=== PATIENT | male | born 1995 | race Caucasian/White ===

== ENCOUNTER 2016-10-11 11:06 | Inpatient (IN) | payer MEDICAID, OTHER ==
[~2016-10-11] VITALS: Ht 180.3 cm; Wt 69.6 kg
[2016-10-11] MEDS ORDERED: QUET300T2 PO (11:20)
[2016-10-11] MEDS ORDERED: HALOPERIDOL LACTATE 5 MG/ML VIAL IM ONE (11:30)
[2016-10-11] MEDS ORDERED: DiphenhydrAMINE HCL 50 MG/ML VIAL IM ONE (11:30)
[2016-10-11] MEDS ORDERED: LORazepam 2 MG/ML VIAL IM ONE (11:30)
[2016-10-11 11:44] LABS: BASOPHILS # (AUTO) 0.06 K/uL (0.00-0.20); BASOPHILS % (AUTO) 0.8 % (0.0-2.0); EOSINOPHILS # (AUTO) 0.04 K/uL (0.00-0.70); EOSINOPHILS % (AUTO) 0.47 % (1.0-6.0); HEMATOCRIT 44.4 % (41-53); HEMOGLOBIN 14.7 g/dL (13.5-17.5); LYMPHOCYTES # (AUTO) 2.5 K/uL (1.0-4.8); LYMPHOCYTES % (AUTO) 30.4 % (22.0-44.0); MEAN CORPUSCULAR HEMOGLOBIN 29.4 pg (26.0-34.0); MEAN CORPUSCULAR VOLUME 89 fL (80-100); MONOCYTES # (AUTO) 0.6 K/uL (0.1-1.0); MONOCYTES % (AUTO) 7.7 % (2.0-9.0); NEUTROPHILS % (AUTO) 60.6 % (40.0-70.0); PLATELET COUNT (AUTO) 242 K/uL (150-450); RED BLOOD CELL COUNT(AUTO) 4.99 MIL/uL (4.50-5.90); RED CELL DISTRIBUTION WIDTH 15.3 % (11.5-14.5); WHITE BLOOD COUNT (AUTO) 8.3 K/uL (4.5-11.0)
[2016-10-11 11:53] LABS: ANION GAP 13 mmol/L (8-16); CARBON DIOXIDE 25 mmol/L (22-29); CHLORIDE 100 mmol/L (98-107); GLOMERULAR FILTR. RATE CALC > 60 mL/min (>60); POTASSIUM 3.8 mmol/L (3.5-5.1); SODIUM SERUM 138 mmol/L (136-145); UREA NITROGEN, BLOOD 19 mg/dL (7-18)
[2016-10-11 11:59] LABS: ALANINE AMINOTRANSFERASE 64 U/L (12-78); ALBUMIN 4.3 g/dL (3.4-5.0); ASPARTATE AMINOTRANSFERASE 30 U/L (15-37); BILIRUBIN,TOTAL 0.6 mg/dL (0.1-1.0); TOTAL PROTEIN, SERUM 7.9 g/dL (6.4-8.2)
[2016-10-11] MEDS ORDERED: ZOLPIDEM TARTRATE 10 MG TABLET PO PRN (14:30)
[2016-10-11] MEDS ORDERED: LORazepam 2 MG TABLET PO PRN (14:30)
[2016-10-11] MEDS ORDERED: HALOPERIDOL 5 MG TABLET PO PRN (14:30)
[2016-10-11 17:36] VITALS: BP 137/78
[2016-10-11] MEDS ORDERED: PNEUMOCOCCAL VACCINE POLYVALENT 0.5 ML VIAL [PPSV23] IM ONE (18:00)
[2016-10-11] MEDS ORDERED: INFLUENZA VIRUS VACCINE QVS 2016-17 (3YR+)/PF 60 MCG/0.5 ML SYRINGE IM ONE (18:00)
[2016-10-12 07:10] VITALS: BP 117/70
[2016-10-12] MEDS: BACITRACIN 28.4 GM OINTMENT TP SCH ×2 (08:48→17:00)
[2016-10-12 09:51] VITALS: BP 107/80
[2016-10-12] MEDS ORDERED: ONDANSETRON HCL 4 MG TABLET PO PRN (14:30)
[2016-10-12] MEDS ORDERED: PETROLATUM,WHITE 71 GM JELLY TP PRN (14:30)
[2016-10-12] MEDS ORDERED: ACETAMINOPHEN 325 MG TABLET PO PRN (14:30)
[2016-10-12] MEDS ORDERED: MAGNESIUM HYDROXIDE SUSPENSION 30 ML UDCUP PO PRN (14:30)
[2016-10-12] MEDS ORDERED: LOPERAMIDE HCL 2 MG CAPSULE PO PRN (14:30)
[2016-10-12] MEDS ORDERED: BACITRACIN 28.4 GM OINTMENT TP PRN (14:30)
[2016-10-12] MEDS ORDERED: CloNIDine HCL 0.1 MG TABLET PO PRN (14:30)
[2016-10-12] MEDS ORDERED: IBUPROFEN 600 MG TABLET PO PRN (14:30)
[2016-10-12] MEDS ORDERED: BENZOCAINE/MENTHOL LOZENGE MM PRN (14:30)
[2016-10-12] MEDS ORDERED: ALBUTEROL SULFATE HFA 90 MCG/PUFF 8 GM INHALER IH PRN (14:30)
[2016-10-12] MEDS ORDERED: MAG HYDROX/AL HYDROX/SIMETH ES 30 ML SUSPENSION UDCUP PO PRN (14:30)
[2016-10-12 16:13] VITALS: BP 145/79
[2016-10-12] MEDS: QUEtiapine FUMARATE 300 MG TABLET PO SCH (20:44)
[2016-10-13 06:54] VITALS: BP 122/67
[2016-10-13] MEDS: BACITRACIN 28.4 GM OINTMENT TP SCH ×2 (10:31→17:45)
[2016-10-13 16:08] VITALS: BP 128/72
[2016-10-13] MEDS: QUEtiapine FUMARATE 300 MG TABLET PO SCH (20:15)
[2016-10-14 01:37] VITALS: BP 110/74
[2016-10-14] MEDS: BACITRACIN 28.4 GM OINTMENT TP SCH (08:39)
[2016-10-14 09:07] VITALS: BP 133/65
== END 2016-10-14 11:45 | disposition home or self-care (01) | DRG 753 ==
LOC: EEVIPCON 11:08 → EMS 11:08 → B2S 16:35
PROVIDERS: ADMIT Psychiatry & Neurology Psychiatry; ATTEND Psychiatry & Neurology Psychiatry
DX: F31.9 Bipolar disorder, unspecified (principal); R45.851 Suicidal ideations; F32.9 Major depressive disorder, single episode, unspecified; S51.811A Laceration without foreign body of right forearm, initial encounter; S51.812A Laceration without foreign body of left forearm, initial encounter; F12.90 Cannabis use, unspecified, uncomplicated; F17.210 Nicotine dependence, cigarettes, uncomplicated; Z71.6 Tobacco abuse counseling; Z71.51 Drug abuse counseling and surveillance of drug abuser; Z28.21 Immunization not carried out because of patient refusal; Z79.899 Other long term (current) drug therapy; X83.8XXA Intentional self-harm by other specified means, initial encounter; Y93.89 Activity, other specified; Y92.89 Other specified places as the place of occurrence of the external cause; Y99.8 Other external cause status
CPT/HCPCS: 96372; 99285; G0480; J1200; J1630; J2060

== ENCOUNTER 2016-12-26 00:36 | Emergency (ER) | payer MEDICAID, OTHER ==
[~2016-12-26] VITALS: Ht 175.3 cm; Wt 75.0 kg
[~2016-12-26 00:36] MED LIST: QUET300T2 PO
[2016-12-26] MEDS ORDERED: BACITRACIN 0.9 GM PACKET OINTMENT TP ONE (04:00)
[2016-12-26 04:08] VITALS: BP 117/73
== END 2016-12-26 04:08 | disposition home or self-care (01) ==
LOC: EMS 00:38
DX: S61.511A Laceration without foreign body of right wrist, initial encounter (principal); F17.200 Nicotine dependence, unspecified, uncomplicated; F12.90 Cannabis use, unspecified, uncomplicated; F31.9 Bipolar disorder, unspecified; Y04.0XXA Assault by unarmed brawl or fight, initial encounter; Y93.89 Activity, other specified; Y92.89 Other specified places as the place of occurrence of the external cause; Y99.8 Other external cause status
CPT/HCPCS: 99285